=== PATIENT | female | born 1990 ===

== ENCOUNTER 2020-06-12 17:06 | Emergency (ER) | payer MEDICARE ==
[~2020-06-12] VITALS: Ht 167.6 cm; Wt 57.3 kg
[2020-06-12] MEDS ORDERED: SPIR25 PO (17:24)
[2020-06-12 17:26] VITALS: BP 115/71
== END 2020-06-12 17:59 | disposition left against medical advice (07) ==
LOC: EMS 17:06
DX: R05 Cough (principal); Z53.21 Procedure and treatment not carried out due to patient leaving prior to being seen by health care provider